=== PATIENT | male | born 1995 | race Two or more races ===

== ENCOUNTER 2021-11-27 23:47 | Emergency (ER) | payer OTHER ==
[~2021-11-27] VITALS: Ht 190.5 cm; Wt 74.8 kg
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
--- NOTE | 2021-11-28 00:10 | NUR ---
AT BED SIDE
[2021-11-28] MEDS ORDERED: ONDANSETRON HCL/PF 4 MG/2 ML VIAL ONE (00:25)
[2021-11-28] MEDS ORDERED: MORPHINE SULFATE INJ 4 MG/ML DISP.SYRIN ONE (00:25)
[2021-11-28] MEDS ORDERED: VANCOMYCIN 1 GM VIAL ONE (00:25)
[2021-11-28] MEDS: ONDANSETRON HCL/PF 4 MG/2 ML VIAL IV ONE (00:30)
[2021-11-28] MEDS: MORPHINE SULFATE INJ 10 MG/ML DISP.SYRIN IV ONE (00:30)
[2021-11-28] MEDS: VANCOMYCIN 1 GM in IV D5W 250 ML IV ONE (00:30)
[2021-11-28 00:48] LABS: BASOPHILS # (AUTO) 0.1 K/uL (0.0-0.2); BASOPHILS % (AUTO) 0.4 % (0.0-2.0); EOSINOPHILS % (AUTO) 0.4 % (0.0-6.0); HEMATOCRIT 43 % (39-51); HEMOGLOBIN 14.8 g/dL (13.5-17.5); LYMPHOCYTES # (AUTO) 1.3 K/uL (0.8-4.8); LYMPHOCYTES % (AUTO) 8.3 % (20.0-44.0); MEAN CORPUSCULAR HGB CONC 34 g/dl (31.0-36.0); MEAN CORPUSCULAR VOLUME 91 fL (80-96); MONOCYTES # (AUTO) 1.5 K/uL (0.1-1.30); MONOCYTES % (AUTO) 9.5 % (2.0-12.0); NEUTROPHILS # (AUTO) 12.7 K/uL (1.8-8.9); NEUTROPHILS % (AUTO) 81.4 % (43.0-81.0); PLATELET COUNT (AUTO) 250 K/uL (150-450); RED BLOOD CELL COUNT(AUTO) 4.74 MIL/uL (4.5-6.0); WHITE BLOOD COUNT (AUTO) 15.6 K/uL (4.3-11.0)
[2021-11-28 00:57] LABS: CREATININE 1.1 mg/dL (0.6-1.3); POTASSIUM 3.6 mmol/L (3.5-5.1)
--- NOTE | 2021-11-28 01:59 | NUR ---
Patient does not wish to proceed with medical care recommended by Dr. Donnie Marin. Patient given information related to possible complications, up to and including , which could occur as a result of leaving the hospital at this time. Patient verbalizes understanding of risks involved due to leaving against medical advice. Patient has signed AMA form.
--- NOTE | 2021-11-28 01:59 | NUR ---
IV removed. Catheter intact and site benign. Pressure and 4x4 applied to site. No bleeding noted.
[2021-11-28 02:52] VITALS: BP 113/77
== END 2021-11-28 02:00 | disposition home or self-care (01) ==
LOC: ER 23:49
DX: S62.001A Unspecified fracture of navicular [scaphoid] bone of right wrist, initial encounter for closed fracture (principal); S63.8X1A Sprain of other part of right wrist and hand, initial encounter; L03.113 Cellulitis of right upper limb; F90.9 Attention-deficit hyperactivity disorder, unspecified type; F17.200 Nicotine dependence, unspecified, uncomplicated; V29.9XXA Motorcycle rider (driver) (passenger) injured in unspecified traffic accident, initial encounter; Y93.89 Activity, other specified; Y92.89 Other specified places as the place of occurrence of the external cause; Y99.8 Other external cause status
CPT/HCPCS: 29125; 36415; 73130; 80048; 85025; 85652; 86140; 87040 ×2; 96365; 96375; 99284; J2270; J2405; J3370